=== PATIENT | female | born 1980 | race Caucasian/White ===

== ENCOUNTER 2020-09-11 01:19 | Emergency (ER) | payer SELFPAY ==
[2020-09-11] MEDS ORDERED: Ibuprofen 600 MG Tab PO ONE (03:00)
--- NOTE | 2020-09-11 04:01 | EDM.PDOC ---
ED HPI GENERAL MEDICAL PROBLEM - General Chief Complaint: General Stated Complaint: MEDICAL CLEARANCE Time Seen by Provider: 09/11/20 01:46 - History of Present Illness INITIAL COMMENTS - FREE TEXT/NARRATIVE: CHIEF COMPLAINT(S): Medical Clearance HISTORY OF PRESENT ILLNESS: This is a 39-year-old woman with a past medical history of substance abuse disorder, schizophrenia and chronic headache who comes to the emergency department with a chief complaint of Medical Clearance. The patient states that she is currently experiencing a headache which is bifrontal that has been going on for approximately 1 year now. She denies any numbness, tingling, weakness. She denies any blurry vision, double vision or loss of vision. She denies any trouble walking, speaking or swallowing. She rates her pain as 6 out of 10 and describes the headache as a throbbing headache. She states that she tried ibuprofen but this did not help. She states "I think I have a brain infection because I cannot remember anything and I am dumb." Patient denies any fever, neck stiffness, neck pain, IV drugs. In addition she states that her bilateral feet hurt. She states that she is fine walking all over town. She describes her pain as throbbing on her bilateral heels. She denies any injury to her feet. She tried the same Motrin which did not help her pain of her feet. She denies any redness, swelling, pus drainage. The patient denies any other symptoms such as fever, chills, chest pain, shortness of breath, abdominal pain, nausea or vomiting. REVIEW OF SYSTEMS: Constitutional: Denies fever, chills. Eyes: Denies eye pain Ears, Nose, Mouth, & Throat: Denies earache Cardiovascular: Denies chest pain Respiratory: Denies shortness of breath Gastrointestinal: Denies abdominal pain, nausea, vomiting, diarrhea, hemat ochezia. Genitourinary: Denies hematuria Skin:Denies a rash MSK: Bilateral foot pain Neurological: Positive for headache. Denies blurred vision, double vision, loss of vision, numbness, tingling, weakness, trouble walking, speaking or swallowing. Psychiatric: Positive for schizophrenia PAST MEDICAL HISTORY: As per history of present illness and as reviewed below otherwise noncontributory. SURGICAL HISTORY: As per history of present illness and as reviewed below otherwise noncontributory. SOCIAL HISTORY: As per history of present illness and as reviewed below otherwise noncontributory. FAMILY HISTORY: As per history of present illness and as reviewed below otherwise noncontributory. EXAMINATION OF ORGAN SYSTEMS/BODY AREAS: Constitutional: Blood pressure is 128/65, heart rate 101, respiratory rate 17 with an oxygen saturation 97% on room air. Temperature 36.3 General: Young woman who is in no acute distress picking at her skin Psychiatric: Odd affect however is cooperative. Does not appear to be responding to internal stimuli. Denies SI, HI eyes: No scleral icterus or conjunctival erythema pupils are equal round reactive to light. Extraocular movements intact. No vertical or horizontal nystagmus. ENMT: Moist mucous membranes. No pharyngeal erythema facies are symmetrical. Cardiovascular: Regular, rate, and rhythm. No gallops, murmurs, or rubs. Bilateral upper extremity and lower extremity pulses symmetric and intact. No peripheral edema. No JVD. Respiratory: Lungs clear to auscultation bilaterally. No wheezes, rales, or rhonchi. Gastrointestinal: Soft, non-tender, non-distended. Normoactive bowel sounds Genitourinary: No suprapubic tenderness Musculoskeletal: Normal range of motion. Skin: There appears to be bilateral calcaneal blisters which have already popped. There does not appear to be any surrounding erythema, exposed bone, or purulent drainage. Neurological: Alert, GCS 15 strength and sensation grossly intact in upper and lower extremities bilaterally. Gait is normal. MEDICAL DECISION MAKING AND COURSE IN THE ED WITH INTERPRETATION/REVIEW OF DIAGNOSTIC STUDIES: This is a 39-year-old woman with a past medical history of schizophrenia and chronic headache comes to the emergency department for a medical clearance. The patient is stating that she has had a headache for the past year. The patient is neurologically intact. I do not believe any work-up is indicated there is no evidence of trauma on the patient's body. We will provide the patient with Motrin for pain relief. Given the tachycardia will obtain an EKG. EKG was unremarkable. At this time I do not believe any further work-up is indicated. I did discuss with the patient and placed at bedside that they should continue to use Tylenol and Motrin for headache and pain relief. Given that the blisters do not appear to be infected these are likely due to repetitive trauma from walking and not wearing any socks. Do not appear to be infected. The site should be cleaned daily and covered with a clean dry dressing to protect the healing from trauma and infection. She was given strict return precautions. Otherwise the patient needs to follow-up with her primary care physician and psychiatrist. Therefore the patient was discharged in police custody. The medical clearance form was completed and they were instructed to come to the ED for any new or concerning symptoms. The patient expressed understanding and was amenable to discharge at this time. DISPOSITION: The patient was discharged in police custody in stable condition. CONDITION: Good PROCEDURES: None FINAL IMPRESSION(S)/DIAGNOSES: 1. Acute bilateral posterior foot traumatic blisters 2. Acute on chronic headache 3. Polysubstance abuse 4. History of schizophrenia Peter Shirley M.D. Posterior Head Pain Score (Numeric/FACES): 6 - Related Data Allergies Allergy/AdvReac Type Severity Reaction Status Date / Time Sulfa (Sulfonamide Allergy Hives Verified 09/11/20 01:48 Antibiotics) Home Meds: Home Meds Sertraline [Zoloft] 50 mg PO DAILY 09/29/14 [History] Hydrocodone/Acetaminophen [Hydrocodon-Acetaminophen 5-325] 1 tab PO Q4HR PRN 03/11/15 [History] Ibuprofen 2 tab PO ASDIRECTED PRN 03/11/15 [History] Past Medical History - Past Health History Medical/Surgical History: Denies Medical/Surgical History HEENT History: Other HEENT History: wears glasses, has top partial Cardiovascular History: Reports: None Respiratory History: Reports: None Gastrointestinal History: Reports: None Genitourinary History: Reports: Renal Calculus Other Genitourinary History: states currently has hepatitis C, not being treated for this at this time 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 Musculoskeletal History: Reports: None Neurological History: Reports: None Psychiatric History: Reports: Depression Endocrine/Metabolic History: Reports: None Hematologic History: Reports: None Immunologic History: Reports: None Oncologic (Cancer) History: Reports: None Dermatologic History: Reports: None - Infectious Disease History Infectious Disease History: Reports: Chicken Pox - Past Surgical History Head Surgeries/Procedures: Reports: None Cardiovascular Surgical History: Reports: None Respiratory Surgical History: Reports: None GI Surgical History: Reports: None Female Surgical History: Reports: Hysterectomy, Lithotripsy/ESWL Endocrine Surgical History: Reports: None Neurological Surgical History: Reports: None Musculoskeletal Surgical History: Reports: None Oncologic Surgical History: Reports: None Social & Family History - Family History Family Medical History: No Pertinent Family History - Caffeine Use Caffeine Use: Reports: None - Recreational Drug Use Recreational Drug Use: Yes ED ROS GENERAL - Review of Systems Review Of Systems: See Below ED EXAM, GENERAL - Physical Exam Exam: See Below Course - Vital Signs Last Recorded V/S: Last Vital Signs Temp 36.3 C 09/11/20 01:49 Pulse 82 09/11/20 04:08 Resp 17 09/11/20 04:08 BP 127/63 09/11/20 04:08 Pulse Ox 98 09/11/20 04:08 - Orders/Labs/Meds Meds: Medications Discontinued Medications Generic Name Dose Route Start Last Admin Trade Name Freq PRN Reason Stop Dose Admin Ibuprofen 600 mg 09/11/20 03:00 09/11/20 03:27 Ibuprofen 600 Mg Tab PO 09/11/20 03:01 600 mg ONETIME ONE Administration Departure - Departure Time of Disposition: 03:56 Disposition: DC/Tfer to Court of Law En 21 Condition: Fair Clinical Impression: Methamphetamine abuse, Chronic headache, Blister of foot - Discharge Information *PRESCRIPTION DRUG MONITORING PROGRAM REVIEWED*: No *COPY OF PRESCRIPTION DRUG MONITORING REPORT IN PATIENT [place]: No Instructions: Amphetamines Use Disorder, General Headache Without Cause, Eas y-to-Read, Blisters, Adult Referrals: PCP,None [Primary Care Provider] - Forms: ED Department Discharge Additional Instructions: You were evaluated today on an emergent basis. At this time your vitals were normal. For your headache we did provide you Motrin for your headache. In addition you do have some blisters of both of your heels likely secondary to repetitive trauma from walking. They do not appear to be infected. blister sites should be gently cleansed daily and covered with a clean, dry dressing to protect the healing area from trauma and infection. If you have any redness, pus drainage I would like you to return to the emergency department. Otherwise please follow-up with your primary care physician and please follow-up with psychiatry for your anxiety and mental illness. [facility] - [facility] [address] [place] [address] [id number] [address] [place] [address] [facility] [phone] The patient is informed of any results of their evaluation and diagnostic workup and all questions are answered. They are given discharge instructions and return precautions. The patient is stable for discharge. The patient states they understand and agree with the plan and that they will return if their symptoms get worse or if they have any new concerns. The following information is given to patients seen in the emergency department who are being discharged to home. This information is to outline your options for follow-up care. We provide all patients seen in our emergency department with a follow-up referral. The need for follow-up, as well as the timing and circumstances, are variable depending upon the specifics of your emergency department visit. If you don't have a primary care physician on staff, we will provide you with a referral. We always advise you to contact your personal physician following an emergency department visit to inform them of the circumstance of the visit and for follow-up with them and/or the need for any referrals to a consulting specialist. The emergency department will also refer you to a specialist when appropriate. This referral assures that you have the opportunity for follow-up care with a specialist. All of these measure are taken in an effort to provide you with optimal care, which includes your follow-up. Under all circumstances we always encourage you to contact your private physician who remains a resource for coordinating your care. When calling for follow-up care, please make the office aware that this follow-up is from your recent emergency room visit. If for any reason you are refused follow-up, please contact the [facility] Emergency Department at and asked to speak to the emergency department charge nurse. Sepsis Event Note (ED) - Evaluation Sepsis Screening Result: No Definite Risk
[2020-09-11 04:09] VITALS: BP 127/63; PULSE 82
--- NOTE | 2020-09-11 05:48 | PCM.EKG ---
#1 Interpretation EKG Date: 09/11/20 Time: 03:47 Rhythm: NSR Rate (Beats/Min): 74 Chancellor: Normal P-Wave: Present QRS: Normal ST-T: Normal QT: Normal Comparison: No Change (09/11/20) EKG Interpretation Comments: Sinus Rhythm
== END 2020-09-11 04:09 ==
LOC: MW.ED 01:19
DX: R51.9 Headache, unspecified (principal); S90.822A Blister (nonthermal), left foot, initial encounter; S90.821A Blister (nonthermal), right foot, initial encounter; F19.10 Other psychoactive substance abuse, uncomplicated; Z88.2 Allergy status to sulfonamides; F15.10 Other stimulant abuse, uncomplicated; X58.XXXA Exposure to other specified factors, initial encounter
CPT/HCPCS: 99283; A9270

== ENCOUNTER 2023-01-29 15:51 | Emergency (ER) | payer SELFPAY ==
[2023-01-29 17:31] VITALS: BP 133/86; PULSE 77
== END 2023-01-29 17:39 | disposition home or self-care (01) ==
LOC: MW.ED 15:51
DX: R51.9 Headache, unspecified (principal); R42 Dizziness and giddiness; Z88.2 Allergy status to sulfonamides
CPT/HCPCS: 99282; 99283